=== PATIENT | male | born 1985 | race Caucasian/White ===

== ENCOUNTER 2020-10-30 14:22 | Emergency (ER) | payer SELFPAY ==
--- NOTE | 2020-10-30 16:24 | EDM.PDOC ---
ED HPI GENERAL MEDICAL PROBLEM - General Chief Complaint: ENT Problem Stated Complaint: [id number] INFECTION IN JAW Time Seen by Provider: 10/30/20 16:00 Source of Information: Reports: Patient, RN, RN Notes Reviewed History Limitations: Reports: No Limitations - History of Present Illness INITIAL COMMENTS - FREE TEXT/NARRATIVE: Jayce is a 34 y/o male who presents to the ED via personal vehicle with for complaints of left lower jaw pain and swelling. The patient reports history of broken #18 tooth which has been infected in the past. He notes pain to the jaw location which started last night and has progressively worsened in that time. He has not been in contact with his primary dentist for the pain/swelling. He denies fever, shaking chills, palpitations, nausea, vomiting, or diarrhea. He has been alternating acetaminophen and ibuprofen for his pain, per his dentist's recommendation from previous dental infections. The patient attests to smoking one pack of cigarettes per day; he denies alcohol or recreational drug use. left jaw Pain Score (Numeric/FACES): 8 - Related Data Allergies Allergy/AdvReac Type Severity Reaction Status Date / Time No Known Allergies Allergy Verified 10/30/20 15:16 Home Meds: Home Meds . [No Known Home Meds] 05/31/18 [History] Past Medical History - Past Health History Medical/Surgical History: Denies Medical/Surgical History - Past Surgical History GI Surgical History: Reports: Hernia, Inguinal Social & Family History - Family History Family Medical History: No Pertinent Family History - Tobacco Use Tobacco Use Status *Q: Current Every Day Tobacco User Years of Tobacco use: 20 Packs/Tins Daily: 1 - Caffeine Use Caffeine Use: Reports: Coffee, Soda - Recreational Drug Use Recreational Drug Use: No ED ROS ENT - Review of Systems Review Of Systems: Comprehensive ROS is negative, except as noted in HPI. ED EXAM, ENT - Physical Exam Exam: See Below Exam Limited By: No Limitations General Appearance: Alert, Mild Distress (Left lateral mandible pain) Eye Exam: Bilateral Eye: EOMI, Normal Inspection, PERRL (3mm) Ears: Normal External Exam, Normal Canal, Hearing Grossly Normal, Normal TMs. No: TM Bulging, TM Dullness, TM Erythema, TM Fluid, TM Perforation Nose: Normal Inspection, Normal Mucousa, No Blood. No: Nasal Discharge, Nasal Swelling, Nasal Tenderness, Injected Turbinates Mouth/Throat: Dental Abcess, Dental Pain (Tooth 18), Dental Tenderness (Left lateral mandible), Other (Poor dentition). No: Dental Trauma, Lip Swelling, Lip Ulcers, Muffled Voice, Pharyngeal Erythema, Throat Swelling, Tonsillar Erythema, Tonsillar Exudates, Tonsillar Swelling, Uvular Deviation, Uvular Edema Head: Atraumatic, Normocephalic Neck: Supple, Full Range of Motion, Tender Lateral (To left lower mandible). No: Lymphadenopathy (L), Lymphadenopathy (R), Tender Midline Respiratory/Chest: No Respiratory Distress, Lungs Clear, Normal Breath Sounds, No Accessory Muscle Use, Chest Non-Tender Cardiovascular: Normal Peripheral Pulses, Regular Rate, Rhythm, No Edema, No Gallop, No JVD, No Murmur, No Rub GI/Abdominal: Normal Bowel Sounds, Soft, Non-Tender, No Organomegaly, No Distention, No Abnormal Bruit, No Mass (Male) Exam: Deferred Rectal (Males) Exam: Deferred Back: Normal Inspection, Full Range of Motion Extremities: Normal Inspection, Normal Range of Motion, Non-Tender, No Pedal Edema, Normal Capillary Refill Neurological: Alert, Oriented, CN II-XII Intact, Normal Cognition, Normal Gait, No Motor/Sensory Deficits Psychiatric: Normal Affect, Normal Mood Skin: Warm, Dry, Intact, Normal Color, No Rash. No: Cyanosis, Ecchymosis, Erythema, Jaundice, Mottled, Pallor Course - Vital Signs Last Recorded V/S: Last Vital Signs Temp 98.1 F 10/30/20 15:11 Pulse 73 10/30/20 15:11 Resp 20 10/30/20 15:11 BP 143/90 H 10/30/20 15:11 Pulse Ox 99 10/30/20 15:11 - Orders/Labs/Meds Meds: Medications Discontinued Medications Generic Name Dose Route Start Last Admin Trade Name Freq PRN Reason Stop Dose Admin Lidocaine HCl 15 ml 10/30/20 16:26 10/30/20 16:38 Lidocaine 2% Viscous Solution 15 Ml Cup PO 10/30/20 16:27 15 ml ONETIME ONE Administration - Re-Assessments/Exams Free Text/Narrative Re-Assessment/Exam: 10/30/20 Findings of examination reviewed with patient and . Will treat dental infection with Augmentin. Discussed supportive cares for dental pain. Patient instructed to follow up with primary dentist following completion of abx, or sooner as symptoms warrant. Red flag signs and symptoms which would warrant reevaluation reviewed. Patient verbalized understanding and agreement with the plan of care. Departure - Departure Time of Disposition: 16:25 Disposition: Home, Self-Care 01 Condition: Good Clinical Impression: Dental infection, Dental abscess Fracture of tooth Qualifiers: Encounter type: initial encounter Fracture type: closed Qualified Code(s): S02.5XXA - Fracture of tooth (traumatic), initial encounter for closed fracture - Discharge Information *PRESCRIPTION DRUG MONITORING PROGRAM REVIEWED*: Not Applicable *COPY OF PRESCRIPTION DRUG MONITORING REPORT IN PATIENT PRICILLA: Not Applicable Instructions: Dental Abscess Referrals: PCP,None [Primary Care Provider] - Forms: ED Department Discharge Additional Instructions: Rx: Augmentin 1.) Take all of your antibiotic until gone, even as symptoms improve. 2.) Continue alternating Tylenol 1gm and Motrin 600mg, per previous recommendations. 3.) You may apply ice to the affected area as pain and swelling persist; 20 minutes, every hour. 4.) Follow up with your primary care dentist following completion of antibiotics, or sooner should your symptoms worsen despite medications. Sepsis Event Note (ED) - Evaluation Sepsis Screening Result: No Definite Risk
[2020-10-30] MEDS ORDERED: Lidocaine 2% Viscous Solution 15 ML Cup PO ONE (16:26)
== END 2020-10-30 16:45 | disposition home or self-care (01) ==
LOC: DL.ED 14:22
DX: K04.7 Periapical abscess without sinus (principal); K03.81 Cracked tooth; F17.210 Nicotine dependence, cigarettes, uncomplicated
CPT/HCPCS: 99283; A9270